=== PATIENT | female | born 1955 | race Hispanic/Latino ===

== ENCOUNTER → 2018-07-15 | Day surgery (SDC) | payer MEDICARE ==
[2018-06-26 13:33] LABS: BASOPHILS % 0.6 % (0.0-1.0); EOSINOPHILS # (AUTO) 0.1 (0.0-0.4); EOSINOPHILS % 0.9 % (0.0-6.0); HEMATOCRIT 40.2 % (34.2-44.1); HEMOGLOBIN 13.3 g/dL (12.0-16.0); LYMPHOCYTES # (AUTO) 1.4 (1.0-3.2); LYMPHOCYTES % 20.9 % (18.0-39.1); MEAN CORPUSCULAR HEMOGLOBIN 29.7 pg (28-32); MEAN CORPUSCULAR HGB CONC 33.1 g/dL (31-35); MEAN CORPUSCULAR VOLUME 89.7 fL (81-99); MONOCYTES # (AUTO) 0.7 (0.2-0.8); MONOCYTES % 10.6 % (4.4-11.3); NEUTROPHILS # (AUTO) 4.5 (2.1-6.9); NEUTROPHILS % 66.7 % (38.7-80.0); PLATELET COUNT 235 x10e3/uL (140-360); RED BLOOD COUNT 4.48 x10e6/uL (3.6-5.1)
[~2018-07-15] MED LIST: BENICAR HCT 401 EAC1 PO; LIDOCAINE HCL 2% LOCAL INJ 5 ML SDV VIAL INJ ONE; MIDAZOLAM HCL 2 MG/2 ML VIAL ONE; PROPOFOL IV EMULSION 10 MG/ML 50 ML VIAL ONE
[2018-07-15 15:50] VITALS: BP 169/94
== END | disposition home or self-care (01) ==
LOC: OR 10:43
PROVIDERS: ATTEND Internal Medicine Gastroenterology
DX: Z12.11 Encounter for screening for malignant neoplasm of colon (principal); D12.4 Benign neoplasm of descending colon; I10 Essential (primary) hypertension; Z01.810 Encounter for preprocedural cardiovascular examination; Z01.812 Encounter for preprocedural laboratory examination; Z68.32 Body mass index [BMI] 32.0-32.9, adult
CPT/HCPCS: 36415; 45384; 85025; 93005; J2001; J2250; J2704; 45378